=== PATIENT | male | born 1980 | race Caucasian/White ===

== ENCOUNTER 2020-12-05 00:52 | Emergency (ER) | payer SELFPAY ==
[~2020-12-05] VITALS: Wt 77.1 kg
== END 2020-12-05 04:05 | disposition home or self-care (01) ==
LOC: ED 00:52
DX: R11.2 Nausea with vomiting, unspecified (principal); R19.7 Diarrhea, unspecified; R10.9 Unspecified abdominal pain
CPT/HCPCS: 80053; 81001; 85025; 96374; 99284-25; J2550; J7030